=== PATIENT | male | born 1960 | race Caucasian/White ===

== ENCOUNTER 2024-09-16 20:53 | Inpatient (IN) | payer OTHER ==
[~2024-09-16] VITALS: Ht 175.3 cm; Wt 136.1 kg
[~2024-09-16 20:53] MED LIST: ASPIR 8181 MG PO; CLONIDINE HCL0.1 MG PO; GLIPIZIDE10 MG PO; IMURAN50 MG PO; LANTUS100 UNITS/ SQ; LASIX20 MG PO; METOPROLOL TART50 MG PO; PREDNISONE20 MG PO
[2024-09-16] MEDS: ONDANSETRON HCL INJ 2MG/ML 2ML 2 MG/ML VIAL IV STA (21:28)
[2024-09-16] MEDS: SODIUM CHLORIDE 0.9% 1000ML 1,000 ML IV STA ×2 (21:29→23:30)
[2024-09-16 21:53] LABS: BASOPHILS # (AUTO) 0.2 (0.0-0.1); BASOPHILS % 0.7 % (0.0-1.0); EOSINOPHILS # (AUTO) 0.6 (0.0-0.4); EOSINOPHILS % 2.8 % (0.0-6.0); HEMATOCRIT 54.8 % (38.2-49.6); HEMOGLOBIN 19.8 g/dL (14.0-18.0); LYMPHOCYTES # (AUTO) 2.5 (1.0-3.2); LYMPHOCYTES % 11.6 % (18.0-39.1); MEAN CORPUSCULAR HEMOGLOBIN 32.2 pg (28-32); MEAN CORPUSCULAR HGB CONC 36.1 g/dL (31-35); MEAN CORPUSCULAR VOLUME 89.3 fL (81-99); MONOCYTES # (AUTO) 1.6 (0.2-0.8); MONOCYTES % 7.7 % (4.4-11.3); NEUTROPHILS # (AUTO) 16.2 (2.1-6.9); NEUTROPHILS % 75.7 % (38.7-80.0); PLATELET COUNT 246 x10e3/uL (140-360); RED BLOOD COUNT 6.14 x10e6/uL (4.3-5.7); RED CELL DISTRIBUTION WIDTH 12.3 % (11.7-14.4); WHITE BLOOD COUNT 21.37 x10e3/uL (4.8-10.8)
[2024-09-16 22:10] LABS: ALBUMIN 3.9 g/dL (3.5-5.0); ANION GAP 21.6 mmol/L (8-16); BILIRUBIN,TOTAL 1.5 mg/dL (0.2-1.2); CALCIUM 8.5 mg/dL (8.4-10.2); CREATININE, SERUM 2.81 mg/dL (0.72-1.25); POTASSIUM 3.6 mmol/L (3.5-5.1); TOTAL PROTEIN 7.9 g/dL (6.5-8.1)
[2024-09-16 22:17] LABS: TROPONIN I 0.175 ng/mL (0-0.300)
[2024-09-16] MEDS: ACETAMINOPHEN 325 MG TAB PO STA (23:28)
[2024-09-16] MEDS: FAMOTIDINE 20 MG/2 ML VIAL IV STA (23:29)
[2024-09-17] VITALS (12 sets, daily range): BP systolic 100–138; BP diastolic 70–85; PULSE 63–80; RESP 16–20; TEMP 97.3–98.6; O2SAT 96–100
[2024-09-17] MEDS ORDERED: Morphine 4mg INJECTION 4 MG/ML INJ IV PRN (01:45)
[2024-09-17] MEDS ORDERED: ONDANSETRON HCL INJ 2MG/ML 2ML 2 MG/ML VIAL IV PRN (01:45)
[2024-09-17] MEDS: SODIUM CHLORIDE 0.9% 1000ML 1,000 ML IV SCH (04:05)
[2024-09-17] MEDS ORDERED: ASPIRIN81 MG PO (04:47)
[2024-09-17] MEDS ORDERED: CARVEDILOL12.5 MG PO (04:47)
[2024-09-17] MEDS ORDERED: AMIODARONE HCL100 MG PO (04:47)
[2024-09-17] MEDS ORDERED: SPIRONOLACTONE1 EACH PO (04:47)
[2024-09-17] MEDS ORDERED: LEVOTHYROXINE50 MCG PO (04:47)
[2024-09-17 07:46] LABS: CLARITY,URINE CLEAR (CLEAR); COLOR,URINE YELLOW (YELLOW)
[2024-09-17 07:47] LABS: BILIRUBIN,URINE SMALL (NEGATIVE); GLUCOSE, URINE NEGATIVE (NEGATIVE); KETONES,URINE 1+ (NEGATIVE); LEUKOCYTE ESTERASE ,URINE NEGATIVE (NEGATIVE); NITRITE,URINE NEGATIVE (NEGATIVE); PH,URINE 5.5 (5 - 7); PROTEIN,URINE DIPSTICK TRACE (NEGATIVE); URINE UROBILINOGEN 0.2 mg/dL (0.2 - 1)
[2024-09-17 08:08] LABS: BACTERIA,URINE RARE /HPF; WBC,URINE (MAN) 0-5 /HPF (0-5)
[2024-09-17] MEDS ORDERED: MELATONIN 3 MG TAB PO PRN (08:45)
[2024-09-17] MEDS ORDERED: METOPROLOL TARTRATE INJ 1 MG/ML VIAL IV PRN (08:45)
[2024-09-17] MEDS ORDERED: SIMETHICONE 80 MG CHEW PO PRN (08:45)
[2024-09-17] MEDS ORDERED: ACETAMINOPHEN 325 MG TAB PO PRN (08:45)
[2024-09-17] MEDS ORDERED: ALBUTEROL/IPRATROPIUM 3 ML NEB NEB PRN (08:45)
[2024-09-17] MEDS: ASPIRIN 81 MG ENTERIC COATED PO SCH (09:00)
[2024-09-17 10:49] LABS: BASOPHILS # (AUTO) 0.2 (0.0-0.1); BASOPHILS % 0.8 % (0.0-1.0); EOSINOPHILS # (AUTO) 0.7 (0.0-0.4); HEMATOCRIT 49.7 % (38.2-49.6); HEMOGLOBIN 18.2 g/dL (14.0-18.0); LYMPHOCYTES # (AUTO) 2.2 (1.0-3.2); LYMPHOCYTES % 12.1 % (18.0-39.1); MEAN CORPUSCULAR HEMOGLOBIN 33.5 pg (28-32); MEAN CORPUSCULAR HGB CONC 36.6 g/dL (31-35); MEAN CORPUSCULAR VOLUME 91.5 fL (81-99); MONOCYTES # (AUTO) 1.7 (0.2-0.8); MONOCYTES % 9.1 % (4.4-11.3); NEUTROPHILS # (AUTO) 13.3 (2.1-6.9); NEUTROPHILS % 72.9 % (38.7-80.0); PLATELET COUNT 196 x10e3/uL (140-360); RED BLOOD COUNT 5.43 x10e6/uL (4.3-5.7); RED CELL DISTRIBUTION WIDTH 12.5 % (11.7-14.4); WHITE BLOOD COUNT 18.29 x10e3/uL (4.8-10.8)
[2024-09-17 11:14] LABS: ANION GAP 17.2 mmol/L (8-16); CALCIUM 7.8 mg/dL (8.4-10.2); CREATININE, SERUM 2.08 mg/dL (0.72-1.25); POTASSIUM 3.2 mmol/L (3.5-5.1)
[2024-09-17 11:33] LABS: TROPONIN I 0.152 ng/mL (0-0.300)
[2024-09-17 11:48] LABS: CHOL/HDL RATIO 3.8 (3.9-4.7)
[2024-09-17] MEDS: ENOXAPARIN SOD INJ 40 MG/0.4 ML SYR SC SCH (16:43)
[2024-09-17] MEDS: POTASSIUM CHLORIDE 20 MEQ TAB CR PO STA (16:43)
[2024-09-18] VITALS (14 sets, daily range): BP systolic 96–118; BP diastolic 59–85; PULSE 60–83; RESP 16–20; TEMP 97.7–98.3; O2SAT 95–100
[2024-09-18 08:06] LABS: BASOPHILS # (AUTO) 0.1 (0.0-0.1); BASOPHILS % 1.1 % (0.0-1.0); EOSINOPHILS # (AUTO) 1.1 (0.0-0.4); EOSINOPHILS % 8.6 % (0.0-6.0); HEMATOCRIT 47.3 % (38.2-49.6); HEMOGLOBIN 17.1 g/dL (14.0-18.0); LYMPHOCYTES # (AUTO) 2.1 (1.0-3.2); LYMPHOCYTES % 15.5 % (18.0-39.1); MEAN CORPUSCULAR HEMOGLOBIN 33.5 pg (28-32); MEAN CORPUSCULAR HGB CONC 36.2 g/dL (31-35); MEAN CORPUSCULAR VOLUME 92.7 fL (81-99); MONOCYTES # (AUTO) 1.3 (0.2-0.8); MONOCYTES % 9.6 % (4.4-11.3); NEUTROPHILS # (AUTO) 8.5 (2.1-6.9); NEUTROPHILS % 64.4 % (38.7-80.0); PLATELET COUNT 165 x10e3/uL (140-360); RED CELL DISTRIBUTION WIDTH 12.5 % (11.7-14.4); WHITE BLOOD COUNT 13.27 x10e3/uL (4.8-10.8)
[2024-09-18 08:38] LABS: ALBUMIN 3.2 g/dL (3.5-5.0); ANION GAP 12.6 mmol/L (8-16); BILIRUBIN,TOTAL 0.8 mg/dL (0.2-1.2); CREATININE, SERUM 1.48 mg/dL (0.72-1.25); POTASSIUM 3.6 mmol/L (3.5-5.1); TOTAL PROTEIN 6.3 g/dL (6.5-8.1)
[2024-09-18 08:55] LABS: TROPONIN I 0.135 ng/mL (0-0.300)
[2024-09-18] MEDS: LEVOTHYROXINE SODIUM 50 MCG TAB PO SCH (10:38)
[2024-09-18] MEDS: AMIODARONE HCL 200 MG TAB PO SCH (10:39)
[2024-09-19] VITALS (9 sets, daily range): BP systolic 89–123; BP diastolic 59–79; PULSE 58–68; RESP 16–20; TEMP 97.5–98.2; O2SAT 94–100
[2024-09-19 06:49] LABS: HEMATOCRIT 41.8 % (38.2-49.6); HEMOGLOBIN 14.5 g/dL (14.0-18.0); MEAN CORPUSCULAR HEMOGLOBIN 32.7 pg (28-32); MEAN CORPUSCULAR HGB CONC 34.7 g/dL (31-35); MEAN CORPUSCULAR VOLUME 94.4 fL (81-99); PLATELET COUNT 124 x10e3/uL (140-360); RED BLOOD COUNT 4.43 x10e6/uL (4.3-5.7); RED CELL DISTRIBUTION WIDTH 12.4 % (11.7-14.4)
[2024-09-19] MEDS: DOCUSATE SODIUM 100 MG CAP PO PRN (08:57)
[2024-09-19 10:22] LABS: EOSINOPHILS % (MANUAL) 10 % (0-7); LYMPHOCYTES % (MANUAL) 15 % (19-48); MONOCYTES % (MANUAL) 12 % (3.4-9.0); NEUTROPHILS % (MANUAL) 63 % (40-74)
[2024-09-19 10:23] LABS: PLATELET ESTIMATE SLIGHTLY DECREASED; PLATELET MORPHOLOGY COMMENT FEW LARGE; RBC MORPHOLOGY COMMENT NORMAL
[2024-09-20] VITALS: BP_SYST 110; BP_SYST 92; BP_DIAS 49; BP_DIAS 73; PULSE 60; PULSE 61; RESP 20; TEMP 97.9; O2SAT 99
[2024-09-20 04:00] VITALS: BP 109/65; PULSE 63; RESP 20; TEMP 97.6; O2SAT 99
[2024-09-20 07:00] LABS: BASOPHILS # (AUTO) 0.1 (0.0-0.1); BASOPHILS % 0.8 % (0.0-1.0); EOSINOPHILS # (AUTO) 0.8 (0.0-0.4); HEMATOCRIT 41.4 % (38.2-49.6); HEMOGLOBIN 14.4 g/dL (14.0-18.0); LYMPHOCYTES # (AUTO) 1.7 (1.0-3.2); LYMPHOCYTES % 19.1 % (18.0-39.1); MEAN CORPUSCULAR HEMOGLOBIN 33.5 pg (28-32); MEAN CORPUSCULAR HGB CONC 34.8 g/dL (31-35); MEAN CORPUSCULAR VOLUME 96.3 fL (81-99); MONOCYTES # (AUTO) 1.1 (0.2-0.8); MONOCYTES % 11.9 % (4.4-11.3); NEUTROPHILS # (AUTO) 5.2 (2.1-6.9); NEUTROPHILS % 58.4 % (38.7-80.0); PLATELET COUNT 118 x10e3/uL (140-360); RED CELL DISTRIBUTION WIDTH 12.7 % (11.7-14.4); WHITE BLOOD COUNT 8.91 x10e3/uL (4.8-10.8)
[2024-09-20 07:28] LABS: ANION GAP 13.9 mmol/L (8-16); CALCIUM 8.4 mg/dL (8.4-10.2); CREATININE, SERUM 1.02 mg/dL (0.72-1.25); POTASSIUM 3.9 mmol/L (3.5-5.1)
[2024-09-20 07:47] VITALS: BP 99/67; PULSE 58; RESP 19; TEMP 97.3; O2SAT 96
[2024-09-20 08:00] VITALS: BP 99/67; PULSE 58; RESP 19; TEMP 97.3; O2SAT 96
== END 2024-09-20 10:27 | disposition home or self-care (01) | DRG 872 ==
LOC: ER 20:59 → ERHOLD 09-17 02:15 → MED/SURG3 09-17 04:25
PROVIDERS: ADMIT Internal Medicine; ATTEND Internal Medicine
PROC: 059Y3ZZ Drainage of Upper Vein, Percutaneous Approach (ICD-10-PCS; principal; 2024-09-18)
DX: A41.9 Sepsis, unspecified organism (principal); E87.1 Hypo-osmolality and hyponatremia; I31.39 Other pericardial effusion (noninflammatory); Z68.41 Body mass index [BMI] 40.0-44.9, adult; N17.9 Acute kidney failure, unspecified; J90 Pleural effusion, not elsewhere classified; D69.6 Thrombocytopenia, unspecified; D89.84 IgG4-related disease; K52.9 Noninfective gastroenteritis and colitis, unspecified; D75.1 Secondary polycythemia; R11.2 Nausea with vomiting, unspecified; E66.01 Morbid (severe) obesity due to excess calories; E11.9 Type 2 diabetes mellitus without complications; Z79.4 Long term (current) use of insulin; Z79.84 Long term (current) use of oral hypoglycemic drugs; Z79.85 Long-term (current) use of injectable non-insulin antidiabetic drugs; E86.0 Dehydration; E87.8 Other disorders of electrolyte and fluid balance, not elsewhere classified; I48.0 Paroxysmal atrial fibrillation; E78.00 Pure hypercholesterolemia, unspecified; G47.33 Obstructive sleep apnea (adult) (pediatric); K76.0 Fatty (change of) liver, not elsewhere classified; Z79.82 Long term (current) use of aspirin; Z79.899 Other long term (current) drug therapy; Z79.02 Long term (current) use of antithrombotics/antiplatelets
CPT/HCPCS: 36415; 74018; 74176; 80048; 80053; 80061; 81001; 82550; 82948; 83036; 83690; 84484; 85007; 85025; 85027; 87040; 87086; 93005; 93306; 94799; 99195; 99284; J1650; J2405; J2543; J7030